=== PATIENT | male | born 1965 | race Caucasian/White ===

== ENCOUNTER 2017-08-13 17:28 | Inpatient (IN) | payer MEDICARE, MEDICAID ==
[~2017-08-13] VITALS: Ht 182.9 cm; Wt 119.0 kg
[~2017-08-13 17:28] MED LIST: ALBU18HF2 INH; CARV-50 PO; DIGO125T97 PO; FURO-150 PO; LISI-604 PO; Xarelto PO
[2017-08-13 18:11] LABS: BASOPHILS # (AUTO) 0.1 X10'3 (0-0.2); BASOPHILS % (AUTO) 0.7 % (0-1); EOSINOPHILS # (AUTO) 0.3 X10'3 (0-0.9); EOSINOPHILS % (AUTO) 2.5 % (0-6); HEMATOCRIT 39.1 % (42.0-52.0); LYMPHOCYTES % (AUTO) 22.2 % (21-51); MEAN CORPUSCULAR HEMOGLOBIN 28.9 PG (27.0-31.0); MEAN CORPUSCULAR HGB CONC 33.3 % (33.0-36.5); MEAN CORPUSCULAR VOLUME 86.9 FL (78-98); MEAN PLATELET VOLUME 8.5 FL (7.4-10.4); MONOCYTES # (AUTO) 0.9 X10'3 (0-0.9); MONOCYTES % (AUTO) 6.4 % (2-12); NEUTROPHILS # (AUTO) 9.3 X10'3 (1.8-7.7); NEUTROPHILS % (AUTO) 68.2 % (42-75); PLATELET COUNT 304 X10'3 (140-440); RED CELL DISTRIBUTION WIDTH 15.2 % (11.5-14.5); WHITE BLOOD COUNT 13.6 X10'3 (4.5-11.0)
[2017-08-13 18:21] LABS: INR 1.1 INR; PARTIAL THROMBOPLASTIN TIME 27 SECONDS (22-32); PROTHROMBIN TIME 11.1 SECONDS (9.0-12.0)
[2017-08-13] MEDS ORDERED: furosemide 10 MG/1 ML 10ml inj IV ONE (18:25)
[2017-08-13 18:27] LABS: ALANINE AMINOTRANSFERASE 40 U/L (12-78); ALBUMIN 3.6 G/DL (3.4-5.0); ALBUMIN/GLOBULIN RATIO 1.1 (1.1-1.5); ALKALINE PHOSPHATASE 90 IU/L (46-116); ANION GAP 11 (8-16); ASPARTATE AMINO TRANSFERASE 30 U/L (10-37); BILIRUBIN,TOTAL 0.8 MG/DL (0.1-1.0); BLOOD UREA NITROGEN 16 MG/DL (7-18); BUN/CREATININE RATIO 13.3 (5.4-32.0); CALCIUM 8.8 MG/DL (8.5-10.1); CHLORIDE 102 MMOL/L (99-107); GLUCOSE 131 MG/DL (70-104); POTASSIUM 4.6 MMOL/L (3.5-5.1); SODIUM 140 MMOL/L (135-145); TOTAL CARBON DIOXIDE 27.3 MMOL/L (24-32); TOTAL PROTEIN 6.9 G/DL (6.4-8.2); eGFR 63 ML/MIN
[2017-08-13] MEDS ORDERED: normal saline 1000ml 1,000 ML IV SCH (19:22)
[2017-08-13] MEDS ORDERED: albuterol 2.5 MG/3 ML nebule NEB PRN (19:25)
[2017-08-13] MEDS ORDERED: ipratropium/albuterol 3ml nebule NEB PRN (19:25)
[2017-08-13] MEDS ORDERED: potassium Cl 20 mEq SR tablet PO PRN ×2 (19:25)
[2017-08-13] MEDS ORDERED: acetaminophen 325mg tablet PO PRN (19:25)
[2017-08-13] MEDS ORDERED: magnesium hydroxide 30ml (MOM) UD suspension PO PRN (19:25)
[2017-08-13] MEDS ORDERED: morphine 5 MG/ML injection IV PRN ×2 (19:25)
[2017-08-13] MEDS ORDERED: magnesium 4gm in 100ml NS 100 ML IV PRN (19:25)
[2017-08-13] MEDS ORDERED: magnesium Cl slow-release 64mg tablet PO PRN (19:25)
[2017-08-13] MEDS ORDERED: magnesium 2GM in 50ml NS 50 ML IV PRN (19:25)
[2017-08-13] MEDS ORDERED: ondansetron/PF 4mg/2ml inj IV PRN (19:25)
[2017-08-13] MEDS ORDERED: potassium Cl 40MEQ/NS 500ml 500 ML IV PRN ×2 (19:25)
[2017-08-13] MEDS ORDERED: mag hydrox/Alum hydrox/simeth 30ml oral suspension PO PRN (19:25)
[2017-08-13] MEDS: carVEDilol 12.5mg tablet PO SCH (19:53)
[2017-08-13 20:04] LABS: HEMOGLOBIN A1C 5.7 % (4.5-6.2)
[2017-08-13 20:13] LABS: MAGNESIUM 1.9 MG/DL (1.5-2.4)
[2017-08-13] MEDS ORDERED: diltiazem 5mg/ml 5ml inj. IV ONE (20:25)
[2017-08-13] MEDS ORDERED: temazepam 15mg capsule PO PRN (21:00)
[2017-08-13 21:17] VITALS: BP 129/59
[2017-08-13 22:00] VITALS: BP 120/94
[2017-08-14 02:00] VITALS: BP 105/73
[2017-08-14 06:00] VITALS: BP 124/88
[2017-08-14 06:58] LABS: BASOPHILS # (AUTO) 0.1 X10'3 (0-0.2); BASOPHILS % (AUTO) 0.7 % (0-1); EOSINOPHILS # (AUTO) 0.4 X10'3 (0-0.9); EOSINOPHILS % (AUTO) 3.5 % (0-6); HEMOGLOBIN 12.6 g/dl (14.0-17.9); LYMPHOCYTES # (AUTO) 2.9 X10'3 (1.1-4.8); LYMPHOCYTES % (AUTO) 26.8 % (21-51); MEAN CORPUSCULAR HEMOGLOBIN 29.1 PG (27.0-31.0); MEAN CORPUSCULAR HGB CONC 34.1 % (33.0-36.5); MEAN CORPUSCULAR VOLUME 85.2 FL (78-98); MEAN PLATELET VOLUME 9.1 FL (7.4-10.4); MONOCYTES # (AUTO) 0.8 X10'3 (0-0.9); NEUTROPHILS # (AUTO) 6.7 X10'3 (1.8-7.7); PLATELET COUNT 277 X10'3 (140-440); RED BLOOD COUNT 4.34 X10'6 (4.70-6.10); RED CELL DISTRIBUTION WIDTH 14.9 % (11.5-14.5); WHITE BLOOD COUNT 10.9 X10'3 (4.5-11.0)
[2017-08-14 07:19] LABS: ALANINE AMINOTRANSFERASE 35 U/L (12-78); ALBUMIN 3.3 G/DL (3.4-5.0); ALKALINE PHOSPHATASE 84 IU/L (46-116); ANION GAP 10 (8-16); ASPARTATE AMINO TRANSFERASE 28 U/L (10-37); BILIRUBIN,TOTAL 0.7 MG/DL (0.1-1.0); BLOOD UREA NITROGEN 17 MG/DL (7-18); BUN/CREATININE RATIO 13.5 (5.4-32.0); CALCIUM 8.6 MG/DL (8.5-10.1); CHLORIDE 102 MMOL/L (99-107); CHOL/HDL RATIO 4.4 (0.00-4.99); CHOLESTEROL 144 MG/DL (0-200); CREATININE 1.26 MG/DL (0.60-1.10); GLUCOSE 112 MG/DL (70-104); HDL CHOLESTEROL 33 MG/DL (35-60); LDL CHOLESTEROL 95 MG/DL (50-100); MAGNESIUM 1.9 MG/DL (1.5-2.4); POTASSIUM 3.7 MMOL/L (3.5-5.1); SODIUM 140 MMOL/L (135-145); TOTAL CARBON DIOXIDE 28.3 MMOL/L (24-32); TOTAL PROTEIN 6.5 G/DL (6.4-8.2); TRIGLYCERIDES 98 MG/DL (20-135); eGFR 60 ML/MIN
[2017-08-14] MEDS ORDERED: rivaroxaban 20mg tablet PO SCH (07:30)
[2017-08-14] MEDS ORDERED: furosemide 20MG tablet PO SCH (08:00)
[2017-08-14] MEDS ORDERED: digoxin 125mcg (0.125mg) tablet PO SCH (08:00)
[2017-08-14] MEDS ORDERED: lisinopril 5mg tablet PO SCH (08:00)
[2017-08-14] MEDS ORDERED: CefTRIAXone 2gm/NS 100ml IVPB 100 ML IV SCH (08:00)
[2017-08-14] MEDS ORDERED: K and/or MAG REPLACEMENT MC SCH (08:00)
[2017-08-14] MEDS ORDERED: levoFLOXACIN-Levaquin 750MG/D5 150 ML IV SCH (08:00)
[2017-08-14] MEDS: carVEDilol 12.5mg tablet PO SCH (08:30)
[2017-08-14 11:00] VITALS: BP 100/79
[2017-08-14] MEDS ORDERED: FURO-150 PO (11:54)
[2017-08-14] MEDS ORDERED: POTA10TA15 PO (11:54)
[2017-08-14] MEDS ORDERED: lactobacillus rhamnosus 10,000 MMU CELLS/CAPSULE PO SCH (17:30)
== END 2017-08-14 13:36 | disposition home or self-care (01) | DRG 291 ==
LOC: ER 17:29 → ED HOLD 19:32 → PCU 3S 20:45
PROVIDERS: ADMIT Internal Medicine; ATTEND Family Medicine
DX: I11.0 Hypertensive heart disease with heart failure (principal); J18.9 Pneumonia, unspecified organism; J44.0 Chronic obstructive pulmonary disease with (acute) lower respiratory infection; J44.1 Chronic obstructive pulmonary disease with (acute) exacerbation; I50.21 Acute systolic (congestive) heart failure; I48.91 Unspecified atrial fibrillation; D64.9 Anemia, unspecified; I25.10 Atherosclerotic heart disease of native coronary artery without angina pectoris; N28.9 Disorder of kidney and ureter, unspecified; R74.8 Abnormal levels of other serum enzymes; F12.90 Cannabis use, unspecified, uncomplicated; F17.200 Nicotine dependence, unspecified, uncomplicated; Z79.899 Other long term (current) drug therapy; Z80.9 Family history of malignant neoplasm, unspecified; Z82.3 Family history of stroke; Z82.49 Family history of ischemic heart disease and other diseases of the circulatory system; Z83.3 Family history of diabetes mellitus
CPT/HCPCS: 36415; 71045; 80053; 80061; 80162; 83036; 83605; 83735; 83880; 84484; 85025; 85610; 85730; 87040; 87070; 93005; 93306; 94760; 96374; 99285; J0696; J1940; J1956; J3490; J7030

== ENCOUNTER 2017-08-17 05:18 | Emergency (ER) | payer MEDICARE, MEDICAID ==
[~2017-08-17] VITALS: Ht 182.9 cm; Wt 119.1 kg
[~2017-08-17 05:18] MED LIST changes: +POTA10TA15 PO
[2017-08-17 05:46] LABS: BASOPHILS # (AUTO) 0.1 X10'3 (0-0.2); BASOPHILS % (AUTO) 0.5 % (0-1); EOSINOPHILS # (AUTO) 0.2 X10'3 (0-0.9); EOSINOPHILS % (AUTO) 1.9 % (0-6); HEMATOCRIT 38.3 % (42.0-52.0); HEMOGLOBIN 13.2 g/dl (14.0-17.9); LYMPHOCYTES # (AUTO) 2.7 X10'3 (1.1-4.8); LYMPHOCYTES % (AUTO) 20.5 % (21-51); MEAN CORPUSCULAR HEMOGLOBIN 29.3 PG (27.0-31.0); MEAN CORPUSCULAR HGB CONC 34.4 % (33.0-36.5); MEAN CORPUSCULAR VOLUME 85.1 FL (78-98); MEAN PLATELET VOLUME 8.3 FL (7.4-10.4); MONOCYTES # (AUTO) 0.9 X10'3 (0-0.9); MONOCYTES % (AUTO) 6.8 % (2-12); NEUTROPHILS # (AUTO) 9.1 X10'3 (1.8-7.7); NEUTROPHILS % (AUTO) 70.3 % (42-75); PLATELET COUNT 304 X10'3 (140-440); RED CELL DISTRIBUTION WIDTH 15.2 % (11.5-14.5); WHITE BLOOD COUNT 12.9 X10'3 (4.5-11.0)
[2017-08-17 06:07] LABS: ALANINE AMINOTRANSFERASE 48 U/L (12-78); ALBUMIN 3.4 G/DL (3.4-5.0); ALBUMIN/GLOBULIN RATIO 1.1 (1.1-1.5); ALKALINE PHOSPHATASE 103 IU/L (46-116); ANION GAP 11 (8-16); ASPARTATE AMINO TRANSFERASE 40 U/L (10-37); BILIRUBIN,TOTAL 0.7 MG/DL (0.1-1.0); BLOOD UREA NITROGEN 20 MG/DL (7-18); BUN/CREATININE RATIO 16.7 (5.4-32.0); CALCIUM 8.5 MG/DL (8.5-10.1); CHLORIDE 102 MMOL/L (99-107); GLUCOSE 117 MG/DL (70-104); POTASSIUM 4.1 MMOL/L (3.5-5.1); SODIUM 138 MMOL/L (135-145); TOTAL PROTEIN 6.6 G/DL (6.4-8.2); eGFR 63 ML/MIN
[2017-08-17 06:08] LABS: INR 1.1 INR; PARTIAL THROMBOPLASTIN TIME 27 SECONDS (22-32); PROTHROMBIN TIME 11.7 SECONDS (9.0-12.0)
[2017-08-17] MEDS ORDERED: ipratropium 0.5 MG/2.5ML nebule IH PRN (06:35)
[2017-08-17] MEDS ORDERED: methylPREDNISolone sod succ 125mg/2ml vial IV ONE (06:40)
[2017-08-17] MEDS ORDERED: metoprolol tartrate 1mg/ml inj IV ONE (06:40)
[2017-08-17] MEDS: albuterol 2.5 MG/3 ML nebule CONTNEB PRN ×2 (06:59→07:00)
[2017-08-17] MEDS ORDERED: ALBU6.7H INH (10:08)
[2017-08-17] MEDS ORDERED: ATRIN INH (10:08)
[2017-08-17] MEDS ORDERED: PRED20TA PO (10:08)
[2017-08-17 10:26] VITALS: BP 164/104
== END 2017-08-17 10:27 | disposition home or self-care (01) ==
LOC: ER 05:18
DX: I50.22 Chronic systolic (congestive) heart failure (principal); J44.1 Chronic obstructive pulmonary disease with (acute) exacerbation; I25.10 Atherosclerotic heart disease of native coronary artery without angina pectoris; I48.91 Unspecified atrial fibrillation; F17.200 Nicotine dependence, unspecified, uncomplicated; Z79.899 Other long term (current) drug therapy
CPT/HCPCS: 36415; 71045; 80053; 83880; 84484; 85025; 85610; 85730; 93005; 94644; 94760; 96374; 96375; 99285; J2930; J3490; 94640; J7030

== ENCOUNTER 2019-02-27 21:00 | Emergency (ER) | payer MEDICARE, MEDICAID ==
[~2019-02-27] VITALS: Ht 182.9 cm; Wt 118.2 kg
[~2019-02-27 21:00] MED LIST changes: +ALBU6.7H9 INH; +ATRIN INH
[2019-02-27 21:53] LABS: CLARITY,URINE CLEAR (Clear); COLOR,URINE YELLOW (Yellow); GLUCOSE, URINE NEGATIVE (Neg); KETONES,URINE NEGATIVE (Neg); LEUKOCYTE ESTERASE ,URINE TRACE (Neg); NITRITES, URINE NEGATIVE (Neg); OCCULT BLOOD,URINE NEGATIVE (Neg); PROTEIN,URINE NEGATIVE (Neg)
[2019-02-27 21:57] LABS: UA COLLECTION TYPE CLN CATCH MIDSTREAM
[2019-02-27 22:00] LABS: BACTERIA,URINE FEW /HPF (Neg); MUCUS STRANDS MODERATE /LPF (Neg); RBC,URINE 0 /HPF (0-2); SQUAMOUS EPITHELIAL CELL,UR MODERATE /LPF (FEW); WBC,URINE 0-4 /HPF (0-4)
[2019-02-27 22:03] LABS: BASOPHILS # (AUTO) 0.2 X10'3 (0-0.2); BASOPHILS % (AUTO) 0.9 % (0-1); EOSINOPHILS # (AUTO) 0.2 X10'3 (0-0.9); HEMATOCRIT 45.7 % (42.0-52.0); HEMOGLOBIN 15.4 g/dl (14.0-17.9); LYMPHOCYTES % (AUTO) 18.3 % (21-51); MEAN CORPUSCULAR HEMOGLOBIN 29.8 PG (27.0-31.0); MEAN CORPUSCULAR HGB CONC 33.6 g/dL (33.0-36.5); MEAN CORPUSCULAR VOLUME 88.8 FL (78-98); MONOCYTES # (AUTO) 1.6 X10'3 (0-0.9); MONOCYTES % (AUTO) 9.7 % (2-12); NEUTROPHILS # (AUTO) 11.5 X10'3 (1.8-7.7); NEUTROPHILS % (AUTO) 70.1 % (42-75); PLATELET COUNT 297 X10'3 (140-440); RED BLOOD COUNT 5.15 X10'6 (4.70-6.10); RED CELL DISTRIBUTION WIDTH 14.2 % (11.5-14.5); WHITE BLOOD COUNT 16.4 X10'3 (4.5-11.0)
[2019-02-27] MEDS ORDERED: pantoprazole 40 MG vial IV ONE (22:05)
[2019-02-27] MEDS ORDERED: morphine 4 MG/ML inj SYRINge IV ONE (22:05)
[2019-02-27] MEDS ORDERED: ondansetron/PF 4mg/2ml inj IV ONE (22:05)
[2019-02-27] MEDS ORDERED: dicyclomine 10mg/ml 2ml ampule IM ONE (22:05)
[2019-02-27] MEDS ORDERED: simethicone 125mg capsule PO SCH (22:05)
[2019-02-27 22:18] LABS: ALANINE AMINOTRANSFERASE 26 U/L (12-78); ALBUMIN 3.5 G/DL (3.4-5.0); ALBUMIN/GLOBULIN RATIO 0.9 (1.1-1.5); ALKALINE PHOSPHATASE 82 IU/L (46-116); ANION GAP 6 (8-16); ASPARTATE AMINO TRANSFERASE 23 U/L (10-37); BILIRUBIN,TOTAL 0.6 MG/DL (0.1-1.0); BLOOD UREA NITROGEN 12 MG/DL (7-18); BUN/CREATININE RATIO 10.7 (5.4-32.0); CHLORIDE 103 MMOL/L (99-107); CREATININE 1.12 MG/DL (0.60-1.10); GLUCOSE 92 MG/DL (70-104); LIPASE 132 U/L (73-393); SODIUM 138 MMOL/L (135-145); TOTAL CARBON DIOXIDE 28.9 MMOL/L (24-32); TOTAL PROTEIN 7.4 G/DL (6.4-8.2); eGFR 68 ML/MIN
[2019-02-27] MEDS ORDERED: iohexol 300mg/ml 100ml inj. ONE (23:19)
--- NOTE | 2019-02-28 | NUR ---
DISCUSSED PT'S C/O PAIN AND NAUSEA WITH JI AGUILERA. NEW ORDERS RECIEVED. PT HAS RIDE HOME.
[2019-02-28 00:35] VITALS: BP 136/89
[2019-02-28] MEDS ORDERED: HYDR-3965 PO (01:08)
== END 2019-02-28 01:28 | disposition home or self-care (01) ==
LOC: ER 21:00
DX: R10.31 Right lower quadrant pain (principal); I48.91 Unspecified atrial fibrillation; I25.10 Atherosclerotic heart disease of native coronary artery without angina pectoris; I11.0 Hypertensive heart disease with heart failure; I50.9 Heart failure, unspecified; F17.200 Nicotine dependence, unspecified, uncomplicated; F12.90 Cannabis use, unspecified, uncomplicated; Z98.890 Other specified postprocedural states; Z79.899 Other long term (current) drug therapy
CPT/HCPCS: 36415; 74177; 80053; 81001; 83690; 85025; 85610; 87088; 96372; 96374; 96375; 99284; C9113; J0500; J2270; J2405; Q9967

== ENCOUNTER 2022-06-02 13:13 | Inpatient (IN) | payer MEDICARE, MEDICAID ==
[~2022-06-02] VITALS: Ht 182.9 cm; Wt 136.0 kg
[~2022-06-02 13:13] MED LIST changes: +ALBU6.7H14 INH; -ALBU6.7H9 INH; -LISI-604 PO; +LISI5TAB22 PO
[2022-06-02 14:39] LABS: BASOPHILS # (AUTO) 0.1 X10'3 (0-0.2); BASOPHILS % (AUTO) 0.8 % (0-1); EOSINOPHILS # (AUTO) 0.1 X10'3 (0-0.9); EOSINOPHILS % (AUTO) 0.8 % (0-6); LYMPHOCYTES # (AUTO) 1.9 X10'3 (1.1-4.8); LYMPHOCYTES % (AUTO) 14.2 % (21-51); MEAN CORPUSCULAR HEMOGLOBIN 28.8 PG (27.0-31.0); MEAN CORPUSCULAR HGB CONC 33.3 g/dL (33.0-36.5); MEAN CORPUSCULAR VOLUME 86.6 FL (78-98); MEAN PLATELET VOLUME 7.8 FL (7.4-10.4); MONOCYTES % (AUTO) 7.5 % (2-12); NEUTROPHILS # (AUTO) 10.2 X10'3 (1.8-7.7); NEUTROPHILS % (AUTO) 76.7 % (42-75); PLATELET COUNT 393 X10'3 (140-440); RED BLOOD COUNT 4.85 X10'6 (4.70-6.10); RED CELL DISTRIBUTION WIDTH 14.4 % (11.5-14.5); WHITE BLOOD COUNT 13.2 X10'3 (4.5-11.0)
[2022-06-02 14:52] LABS: ALANINE AMINOTRANSFERASE 41 U/L (12-78); ALBUMIN 3.4 G/DL (3.4-5.0); ALBUMIN/GLOBULIN RATIO 0.9 (1.1-1.5); ALKALINE PHOSPHATASE 95 IU/L (46-116); ANION GAP 6 (8-16); ASPARTATE AMINO TRANSFERASE 39 U/L (10-37); BILIRUBIN,TOTAL 0.9 MG/DL (0.1-1.0); BLOOD UREA NITROGEN 15 MG/DL (7-18); BUN/CREATININE RATIO 12.9 (5.4-32.0); CALCIUM 8.8 MG/DL (8.5-10.1); CHLORIDE 101 MMOL/L (99-107); CREATININE 1.16 MG/DL (0.60-1.10); GLUCOSE 128 MG/DL (70-104); SODIUM 133 MMOL/L (135-145); TOTAL CARBON DIOXIDE 26.3 MMOL/L (24-32); TOTAL PROTEIN 7.2 G/DL (6.4-8.2); eGFR 64 ML/MIN
[2022-06-02] MEDS ORDERED: diltiazem-D5W 125mg/125ml 125 ML IV SCH (15:10)
[2022-06-02] MEDS ORDERED: diltiazem-NS 100mg/100ml 100 ML IV SCH (15:10)
[2022-06-02] MEDS ORDERED: metoprolol tartrate 1mg/ml inj IV ONE (15:10)
[2022-06-02] MEDS ORDERED: ATOR10TA70 PO (16:03)
[2022-06-02] MEDS ORDERED: LISI5TAB22 PO (16:03)
[2022-06-02] MEDS ORDERED: RIVA20TA PO (16:03)
[2022-06-02] MEDS ORDERED: CARV25TA2 PO (16:03)
[2022-06-02] MEDS ORDERED: FURO20TA4 PO (16:03)
[2022-06-02] MEDS ORDERED: LAN0.125T PO (16:03)
--- NOTE | 2022-06-02 16:18 | NUR ---
CRITICAL LAB RESULT RECEIVED: TROPONIN 879. NOTIFIED. ORDERS RECEIVED.
[2022-06-02] MEDS ORDERED: metoprolol tartrate 50mg tablet PO ONE (16:25)
--- NOTE | 2022-06-02 17:29 | NUR ---
PT REPORTING CHEST PRESSURE ONE HOUR AGO, CURRENTLY PROFUSELY DIAPHORETIC, NAUSEATED AND COMPLAINING OF UPPER BACK PAIN. MD NOTIFIED. RECEIVED ORDERS FOR 325 MG ASPIRIN AND NITRO X1. REPEAT EKG PERFORMED AND MD NOTIFIED REASSESSMENT 5 MINUTES POST NITRO PT REPORTS RELIEF FROM ALL SYMPTOMS AND IS RESTING COMFORTABLY. PAGE SENT TO DR PHAN.
[2022-06-02] MEDS ORDERED: ondansetron/PF 4mg/2ml inj IV ONE (17:30)
[2022-06-02] MEDS ORDERED: nitroGLYCERIN 0.4mg SUBLingual tab SL PRN (17:35)
[2022-06-02] MEDS ORDERED: aspirin 81mg tab.chew PO ONE (17:35)
[2022-06-02] MEDS ORDERED: potassium Cl 20 mEq SR tablet PO PRN ×2 (17:50)
[2022-06-02] MEDS ORDERED: ondansetron/PF 4mg/2ml inj IV PRN (17:50)
[2022-06-02] MEDS ORDERED: magnesium 4gm in 100ml NS 100 ML IV PRN (17:50)
[2022-06-02] MEDS ORDERED: potassium Cl 40MEQ/1/2NS 520ml 520 ML IV PRN (17:50)
[2022-06-02] MEDS ORDERED: morphine 2 MG/ML inj. syringe IV PRN (17:50)
[2022-06-02] MEDS ORDERED: acetaminophen 325mg tablet PO PRN (17:50)
[2022-06-02] MEDS ORDERED: magnesium Cl slow-release 64mg tablet PO PRN (17:50)
[2022-06-02] MEDS: ipratropium/albuterol 3ml nebule NEB SCH ×2 (19:00→22:54)
[2022-06-02] MEDS: normal saline 1000ml 1,000 ML IV SCH (19:53)
[2022-06-02] MEDS ORDERED: K and/or MAG REPLACEMENT MC SCH (20:00)
[2022-06-02] MEDS ORDERED: furosemide 10 MG/1 ML 10ml inj IV SCH (20:00)
[2022-06-02] MEDS ORDERED: temazepam 15mg capsule PO PRN (21:00)
[2022-06-02] MEDS ORDERED: atorvastatin 10mg tablet PO SCH (21:00)
[2022-06-02] MEDS: carVEDilol 12.5mg tablet PO SCH (22:56)
[2022-06-02] MEDS: lisinopril 5mg tablet PO SCH (23:04)
[2022-06-02] MEDS: digoxin 125mcg (0.125mg) tablet PO SCH (23:05)
[2022-06-02] MEDS: methylPREDNISolone sod succ 125mg/2ml vial IV SCH (23:06)
--- NOTE | 2022-06-02 23:37 | NUR ---
RONALD NOTIFIED NURSE OF A FLUTTER ON MONITOR. REPEAT EKG DONE. PRIMARY MD NOTIFIED. NO NEW ORDERS
--- NOTE | 2022-06-03 00:45 | NUR ---
NOTIFIED MD OF HIGH BP. 10MG HYDRALAZINE VERBAL ORDER RECIEVED.
[2022-06-03] MEDS ORDERED: hydrALAZINE 20mg/ml inj. IV ONE ×2 (00:55→01:00)
[2022-06-03] MEDS: ipratropium/albuterol 3ml nebule NEB SCH ×3 (03:00→10:44)
[2022-06-03] MEDS: normal saline 1000ml 1,000 ML IV SCH (04:20)
[2022-06-03 05:00] VITALS: BP_DIAS 79
[2022-06-03 07:33] LABS: BASOPHILS % (AUTO) 0.3 % (0-1); EOSINOPHILS % (AUTO) 0 % (0-6); HEMATOCRIT 44.3 % (42.0-52.0); LYMPHOCYTES # (AUTO) 1.3 X10'3 (1.1-4.8); LYMPHOCYTES % (AUTO) 12.9 % (21-51); MEAN CORPUSCULAR HEMOGLOBIN 29.3 PG (27.0-31.0); MEAN CORPUSCULAR HGB CONC 33.9 g/dL (33.0-36.5); MEAN CORPUSCULAR VOLUME 86.5 FL (78-98); MEAN PLATELET VOLUME 8.2 FL (7.4-10.4); MONOCYTES # (AUTO) 0.2 X10'3 (0-0.9); MONOCYTES % (AUTO) 1.5 % (2-12); NEUTROPHILS # (AUTO) 8.4 X10'3 (1.8-7.7); NEUTROPHILS % (AUTO) 85.3 % (42-75); PLATELET COUNT 463 X10'3 (140-440); RED BLOOD COUNT 5.12 X10'6 (4.70-6.10); RED CELL DISTRIBUTION WIDTH 14.2 % (11.5-14.5); WHITE BLOOD COUNT 9.9 X10'3 (4.5-11.0)
[2022-06-03 07:51] LABS: ALBUMIN 3.7 G/DL (3.4-5.0); ANION GAP 12 (8-16); BLOOD UREA NITROGEN 21 MG/DL (7-18); BUN/CREATININE RATIO 15.8 (5.4-32.0); CALCIUM 9.4 MG/DL (8.5-10.1); CHLORIDE 98 MMOL/L (99-107); CREATININE 1.33 MG/DL (0.60-1.10); GLUCOSE 137 MG/DL (70-104); POTASSIUM 4.4 MMOL/L (3.5-5.1); SODIUM 137 MMOL/L (135-145); TOTAL CARBON DIOXIDE 27.4 MMOL/L (24-32); eGFR 55 ML/MIN
[2022-06-03] MEDS: carVEDilol 12.5mg tablet PO SCH (07:51)
[2022-06-03] MEDS: digoxin 125mcg (0.125mg) tablet PO SCH (07:53)
[2022-06-03 07:59] VITALS: BP_SYST 136
[2022-06-03] MEDS: lisinopril 5mg tablet PO SCH (07:59)
[2022-06-03] MEDS: methylPREDNISolone sod succ 125mg/2ml vial IV SCH (08:02)
[2022-06-03] MEDS ORDERED: amox tr/potassium clavulanate 500mg/125mg TAB PO SCH (08:30)
--- NOTE | 2022-06-03 08:40 | NUR ---
Called into pts room. pt states needs to leave and wants to go home now. pt infomred that he is admitted and doctor wanted pt to stay. pt states needs to go and feed animals and has stuff to do. pt given risks of signing out ama including , stroke, [place]. pt verbalized understanding. iv dcd. ama paper signed. hospitalist paged. pt amb to exit with steady gait.
--- NOTE | 2022-06-03 08:43 | NUR ---
PAGER ID: [phone] MESSAGE: Mr Mcdonald W in ER bed 8, signed out AMA, paper signed. Gabriella
[2022-06-03] MEDS ORDERED: rivaroxaban 20mg tablet PO SCH (18:00)
== END 2022-06-03 08:40 | disposition left against medical advice (07) | DRG 871 ==
LOC: ER 13:13 → ED HOLD 16:05
PROVIDERS: ADMIT Internal Medicine; ATTEND Internal Medicine
DX: A41.9 Sepsis, unspecified organism (principal); I50.23 Acute on chronic systolic (congestive) heart failure; J18.9 Pneumonia, unspecified organism; J44.1 Chronic obstructive pulmonary disease with (acute) exacerbation; I24.8 Other forms of acute ischemic heart disease; J44.0 Chronic obstructive pulmonary disease with (acute) lower respiratory infection; Z53.29 Procedure and treatment not carried out because of patient's decision for other reasons; I11.0 Hypertensive heart disease with heart failure; E78.5 Hyperlipidemia, unspecified; F17.210 Nicotine dependence, cigarettes, uncomplicated; I25.10 Atherosclerotic heart disease of native coronary artery without angina pectoris; I48.0 Paroxysmal atrial fibrillation; Z28.310 Unvaccinated for COVID-19; Z83.3 Family history of diabetes mellitus; Z82.3 Family history of stroke; Z82.49 Family history of ischemic heart disease and other diseases of the circulatory system; Z80.9 Family history of malignant neoplasm, unspecified
CPT/HCPCS: 36415; 71045; 80048; 80053; 83735; 83880; 84484; 85025; 93005; 94640; 94760; 96365; 96375; 99291; G0378; J0360; J1940; J2405; J2930; J3490; J7030